=== PATIENT | female | born 1950 ===

== ENCOUNTER 2024-02-15 06:00 | Day surgery (SDC) | payer OTHER ==
[~2024-02-15 06:00] MED LIST: COZAAR25 MG PO; GLIPIZIDE XL10 MG PO; HUMULIN 70100 UNIT/2; PEPCID AC20 MG PO; SIMVASTATIN5 MG PO; SYNTHROID50 MCG PO; TENORMIN50 M1 PO; TRAM1TAB98 PO
[2024-02-15] MEDS ORDERED: CEFAZOLIN SODIUM 1,000 MG VIAL ONE (10:35)
[2024-02-15] MEDS ORDERED: LIDOCAINE HCL 1% 20ML VIAL IJ ONE (10:35)
[2024-02-15] MEDS ORDERED: GENTAMICIN SULFATE 40 MG/ML VIAL ONE (11:11)
[2024-02-15] MEDS ORDERED: TRAM1TAB98 PO (12:29)
[2024-02-15] MEDS ORDERED: CEPHALEXIN250 M1 PO (12:29)
[2024-02-15] MEDS ORDERED: MORPHINE SULFATE 2 MG/ML CARTRIDGE IV ONE (13:45)
== END 2024-02-15 14:45 | disposition home or self-care (01) ==
LOC: CIR.AMB 06:00
PROVIDERS: ATTEND Obstetrics & Gynecology Gynecology
DX: D21.22 Benign neoplasm of connective and other soft tissue of left lower limb, including hip (principal); Z91.040 Latex allergy status